=== PATIENT | male | born 1985 | race Caucasian/White ===

== ENCOUNTER 2016-10-11 14:21 | Inpatient (IN) | payer OTHER ==
--- NOTE | ~2016-10-11 | PN ---
Unit #: [id number] #: [id number] Patient: EWA CHAO [id number] [facility] [address] [place] [address] [id number] MR#: [id number] NAME: EWA CHAO ROOM: [facility] Age: 30 Sex: M Admission Date: 10/11/2016 : 1985 Attending Physician: Ernestina Mejias M.D. Admitting Physician: Ernestina Mejias M.D. Primary Care Physician: Primary Care Physician Esther TINOCO NOTES DATE OF SERVICE: 10/12/2016 SUBJECTIVE Mr. Chao is a 30-year-old male, who was seen today and chart was reviewed, and case was discussed with the staff. He has been anxious, withdrawn, and seclusive to himself. He reports persistent detox symptoms. Meanwhile, he has been taking medications and tolerating them fairly well with no reported side effects. MENTAL STATUS EXAMINATION Young male who was casually dressed with fair personal hygiene, appears to be in no acute distress or discomfort. He was awake and alert with impaired attention and concentration. His mood was anxious with a congruent affect. His speech was slow and goal directed. He denies any suicidal or homicidal ideations, and also denies any auditory or visual hallucinations. His insight and judgment remain slightly impaired. TREATMENT PLAN 1. We will continue him on his current medications and treatment protocol. We will monitor his response and make further adjustments as needed. 2. We will continue to follow up. Dictated by... Gavino Hodge/todd TD: 10/13/2016 05:42 JOB #: [id number] EDIN PROGRESS NOTES X Ernestina Mejias MD PROGRESS NOTE
--- NOTE | ~2016-10-11 | HP ---
Unit #: [id number] #: [id number] Patient: ADELFO CHAO [id number] [place] [address] [id number] MR#: [id number] NAME: ADELFO CHAO ROOM: [facility] Age: 30 Sex: M Admission Date: 10/11/2016 : 1985 Attending Physician: Ernestina Mejias M.D. Admitting Physician: Ernestina Mejias M.D. Primary Care Physician: Primary Care Physician No HISTORY AND PHYSICAL HISTORY OF PRESENT ILLNESS Adelfo is a 30 year old admitted to [facility] because of his extensive poly illicit substance abuse which includes cocaine benzodiazepines, alcohol and opioids. PAST MEDICAL HISTORY Long history of illicit substance abuse. PAST SURGICAL HISTORY Nothing reported ALLERGIES No known drug allergies. SOCIAL HISTORY Smokes one pack per day. Drinks alcohol frequently. Admits to a long history of illicit substance abuse. FAMILY HISTORY Medically noncontributory. REVIEW OF SYSTEMS CONSTITUTIONAL: No fever or chills. HEENT: Denies any sore throat, ear pain or runny nose. CARDIOVASCULAR: Denies chest pain, irregular heart rhythm or palpitations. CHEST: Denies shortness of breath or cough. No hemoptysis. GASTROINTESTINAL: Denies nausea, vomiting, diarrhea or chronic constipation. ENDOCRINE: Denies history of increased thirst or urination. No recent significant weight loss or gain. GENITOURINARY: Denies dysuria, frequency, or hematuria. SKIN: Denies any rashes. HEMATOLOGIC: Denies history of increased bleeding or bruising. MUSCULOSKELETAL: Denies any hot, swollen joints. No generalized muscle pain. NEUROLOGIC: Denies problems with vision or speech. No frequent, severe headaches. No numbness, tingling or weakness in any extremities. Denies loss of bladder or bowel control. CURRENT MEDICATIONS Detox protocol Unit #: [id number] #: [id number] Patient: ADELFO CHAO PHYSICAL EXAMINATION GENERAL: Alert, well-nourished, in no apparent distress. VITAL SIGNS: Blood pressure 100/56, heart rate 80, respirations 16, temperature 98.6. WEIGHT: 210 pounds. HEIGHT: 5'9". SKIN: Warm and dry without rash or lesion. HEENT: Normocephalic. TMs not viewed. Oral and nasal passages clear. Conjunctivae clear. Pupils equal, round and reactive to light and accommodation. Extraocular movements intact. NECK: Supple without lymphadenopathy or thyromegaly. HEART: Regular rate and rhythm without murmur. LUNGS: Clear. ABDOMEN: Soft, nontender. : Not done. EXTREMITIES: No evidence of cyanosis, clubbing or edema. Moves all extremities without focal deficit. NEUROLOGICAL: Grossly within normal limits. Cranial Nerves: II: Visual bauer are intact. III, IV AND : Extraocular movements are intact. Pupils are equal, round and reactive to light. V: Facial sensation is grossly normal. VII: Facial movements and expression are normal. VIII: Auditory acuity grossly intact. IX, X: Uvula is midline. Phonation is normal. XI: Patient shrugs shoulders and turns head normally. XII: Tongue protrudes in the midline. Sensory and Motor Function: Sensory and motor sensation is grossly normal. Motor: moves all extremities well. Coordination: Gait is normal. Deep Tendon Reflexes: Intact. IMPRESSION Psychiatric admission RECOMMENDATIONS PSYCHIATRIC: Per psychiatrist. MEDICAL: I see no contraindications to participating in facility's activities. MEDICAL PROGNOSIS Good. MEDICAL CONDITION Stable. Dictated by... Elo Sahni P.A.-C. for Gavino Cuello/yomaira TD: 10/13/2016 01:23 JOB #: [id number] Unit #: [id number] #: [id number] Patient: ADELFO CHAO HISTORY AND PHYSICAL X Elo Sahni X HISTORY AND PHYSICAL
--- NOTE | ~2016-10-11 | DS ---
Unit #: [id number] #: [id number] Patient: EWA SWANSON [id number] [facility] [address] [place] [address] [id number] MR#: [id number] NAME: EWA SWANSON ROOM: 75 Age: 30 Sex: M Admission Date: 10/11/2016 : 1985 Discharge Date: 10/13/2016 Attending Physician: Ernestina Mejias M.D. Primary Care Physician: Primary Care Physician No DISCHARGE SUMMARY IDENTIFYING DATA Mr. Swanson is a 30-year-old single, male, who is a resident of [place], [place] and was self-referred to the hospital on voluntary basis. DISCHARGE DIAGNOSES Psychiatric: Opioid dependence, moderate, in acute withdrawals; opioid-induced mood disorder. Medical: None. Stressors: Moderate psychosocial stressors. HISTORY OF PRESENT ILLNESS Please see initial psychiatric evaluation for details. PAST PSYCHIATRIC HISTORY Please see initial psychiatric evaluation for details. PAST MEDICAL HISTORY Please see initial psychiatric evaluation for details. HOSPITAL COURSE The patient was [facility] and was oriented to the hospital environment. Routine p.r.n. medications were initiated and started on the detox protocol. However, he was seen to be showing very poor insight into his situation. Once again, he decided that he wanted to leave and was pushing to leave and was denying any suicidal ideations, intent or plan, and was not seen to be danger to self or anyone else, and as such, it was decided that he will be discharged home. We will recommend ongoing outpatient chemical dependency treatment. DISCHARGE MEDICATIONS None. DISCHARGE CONDITION Stable. PROGNOSIS Guarded. Dictated by... Ernestina Mejias M.D. Unit #: [id number] #: [id number] Patient: EWA SWANSON IAA/modl TD: 10/13/2016 06:37 JOB #: [id number] DISCHARGE SUMMARY X Ernestina Mejias MD X DISCHARGE SUMMARY
--- NOTE | ~2016-10-11 | PA ---
Unit #: [id number] #: [id number] Patient: EWA SWANSON [id number] [facility] [address] [place] [address] [id number] MR#: [id number] NAME: EWA SWANSON ROOM: P175 Age: 30 Sex: M Admission Date: 10/11/2016 : 1985 Date of Assessment: 10/11/2016 Attending Physician: Ernestina Mejias M.D. Admitting Physician: Ernestina Mejias M.D. Primary Care Physician: Primary Care Physician No PSYCHIATRIC ASSESSMENT REVISED REPORT DATE OF SERVICE 10/11/2016. IDENTIFYING DATA Mr. Swanson is a 30-year-old male who is a resident of [place], [place] and was self-referred to the hospital on voluntary basis. CHIEF COMPLAINT "I have been using heroin daily for the last 6 months." HISTORY OF PRESENT ILLNESS Mr. Swanson is a 30-year-old male who presented today for help with addiction to heroin and reports that he has been using heroin daily for the last 6 months and he has been using 0.5 g nasally and on and off use of cocaine as well "just a little bit." Last use of heroin was couple of days ago when he used on 50 dollar worth or 0.5 g and reports "I would use because I'm very depressed." However, he denies any suicidal ideations, though he does report significant depressive symptoms with a daily isolation and crying spells, and disturbed sleep and appetite, poor energy level, and feelings of hopelessness and helplessness. SUBSTANCE ABUSE HISTORY The patient reports extensive history of substance abuse and dependence including alcohol, cocaine, and opioids, and benzodiazepines, and currently opioids has been his drug of choice. PAST PSYCHIATRIC HISTORY The patient has not had any prior inpatient or outpatient psychiatric treatment. Review of the medical records indicate that currently is not active in any treatment program, is not seeing a psychiatrist, and is not taking any psychotropic medications. PAST MEDICAL HISTORY No acute or chronic medical illnesses. ALLERGIES No known medication allergies. CURRENT MEDICATIONS None. PERSONAL AND SOCIAL HISTORY A 30-year-old male who reports that he is and lives at Unit #: [id number] #: [id number] Patient: EWA SWANSON home with his and 3 children and has fairly decent social support system. MENTAL STATUS EXAMINATION Young male who was casually dressed with fair personal hygiene, appears to be in no acute distress or discomfort. He was awake and alert on interaction with intact orientation to time, place, and person. His mood was anxious and depressed with a congruent affect. His speech was slow and goal directed. He denies any suicidal or homicidal ideations, and also denies any auditory or visual hallucinations. His insight and judgment remain slightly impaired. DIAGNOSTIC IMPRESSION Psychiatric: Opioid dependence, moderate and acute withdrawals; opioid-induced mood disorder. Medical: None. Stressors: Moderate psychosocial stressors. TREATMENT PLAN 1. The patient has presented with a history of substance abuse and mood disorder, and has been decompensating and will need inpatient hospitalization for safety and stabilization. We will start him on detox protocol. We will closely monitor for any worsening withdrawal symptoms. 2. Supportive therapy was provided to the patient. 3. Safe, structured, and nourishing environment will be provided. ESTIMATED LENGTH OF STAY 4 to 5 days. ABILITY TO HELP SELF Limited. WILLINGNESS TO HELP SELF The patient appears to be willing to help self. STRENGTHS 1. Communicative. 2. Cooperative. PROBLEMS 1. Chronic dysphoric symptoms. 2. Chronic chemical dependency. 3. Poor social support system. DISCHARGE CRITERIA This will be contingent upon the patient's ability to show resolution of his depression and anxiety and his ability to stay safe to himself, particularly after discharge from the hospital. DATE OF ASSESSMENT REVISED Dictated by... Ernestina Mejias M.D. [place]/todd TD: 10/12/2016 06:53 Unit #: [id number] #: [id number] Patient: EWA SWANSON JOB #: [id number] PSYCHIATRIC ASSESSMENT X Ernestina Mejias MD X PSYCHIATRIC ASSESSMENT
[2016-10-12 13:42] LABS: URINE APPEARANCE CLEAR; URINE BILIRUBIN NEG (NEG); URINE BLOOD NEG (NEG); URINE COLOR YELLOW; URINE GLUCOSE NEG (NEG); URINE KETONE NEG (NEG); URINE LEUKOCYTE ESTERASE NEG (NEG); URINE NITRATE NEG (NEG); URINE PH 8.5 (5-8); URINE PROTEIN NEG (NEG); URINE UROBILINOGEN 0.2 MG/DL (NEG)
[2016-10-12 13:56] LABS: AMPHETAMINE NEG (NEG); BARBITURATES NEG (NEG); BENZODIAZEPINES POS (NEG); COCAINE POS (NEG); MARIJUANA NEG (NEG); OPIATES POS (NEG); TRICYCLIC ANTIDEPRESSANTS NEG (NEG); U METHADONE NEG (NEG)
[2016-10-13 09:35] LABS: BASOPHIL% 0.6 % (0-2.5); EOSINOPHIL# 0.1 X10e3 (0-0.7); EOSINOPHIL% 1.2 % (0.0-7.0); HEMOGLOBIN 12.8 gm/dL (13.0-16.0); LYMPHOCYTE# 1.5 X10e3 (1.0-3.5); LYMPHOCYTE% 27.6 % (17.0-45.0); MEAN CELL VOLUME 85.9 FL (83-96); MEAN CORPUSCULAR HEMOGLOBIN 28.2 PG (28-34); MEAN CORPUSCULAR HGB CONC 32.8 g/dL (30-36); MEAN PLATELET VOLUME 8.9 FL (6.5-11.5); MONOCYTE# 0.5 X10e3 (0-1.0); MONOCYTE% 9.3 % (3.0-12.0); NEUTROPHIL# 3.3 X10e3 (1.5-7.1); NEUTROPHIL% 61.3 % (40-75); PLATELET COUNT 275 X10e3 (140-420); RED BLOOD COUNT 4.54 X10e (3.90-5.60); RED CELL DISTRIBUTION WIDTH 13.4 % (11.0-15.5); WHITE BLOOD COUNT 5.4 X10e3 (4.0-10.5)
[2016-10-13 09:41] LABS: DIFF IND NO
[2016-10-13 09:59] LABS: THYROID STIMULATING HORMONE 0.11 uIU/ml (0.34-5.60)
[2016-10-13 10:09] LABS: FREE THYROXIN (T4) 0.56 ng/dL (0.58-1.64)
[2016-10-13 10:11] LABS: ALBUMIN SERUM 3.8 g/dL (3.5-5.0); ALKALINE PHOSPHATASE 58 U/L (32-92); ALT (SGPT) 22 U/L (10-40); AST (SGOT) 18 U/L (10-42); BILIRUBIN,TOTAL 0.5 mg/dL (0.2-2.0); BLOOD UREA NITROGEN 8 mg/dL (9-23); CALCIUM SERUM 9.3 mg/dL (8.4-10.2); CARBON DIOXIDE 23 mmol/L (22-31); CHLORIDE 110 mmol/L (100-111); CREATININE SERUM 0.8 mg/dL (0.6-1.4); GLOM FILT RATE Estimated ABOVE60 mL/min (>60); GLUCOSE FASTING 103 mg/dL (70-110); POTASSIUM 3.7 mmol/L (3.5-5.1); PROTEIN TOTAL SERUM 6.3 g/dL (6.0-8.3); SODIUM 140 mmol/L (135-145)
== END 2016-10-13 09:39 | disposition home or self-care (01) | DRG 897 ==
LOC: POF 14:21 → P1E 14:54
PROVIDERS: Psychiatry & Neurology Psychiatry
PROC: HZ2ZZZZ Detoxification Services for Substance Abuse Treatment (ICD-10-PCS; principal; 2016-10-11)
DX: F11.23 Opioid dependence with withdrawal (principal); F11.24 Opioid dependence with opioid-induced mood disorder; F17.200 Nicotine dependence, unspecified, uncomplicated
CPT/HCPCS: 80053; 80307; 81003; 84439; 84443; 85025; 86592